=== PATIENT | male | born 1995 | race Caucasian/White ===

== ENCOUNTER 2019-09-22 22:35 | Emergency (ER) | payer MEDICAID ==
[~2019-09-22] VITALS: Ht 193 cm; Wt 112.5 kg
[2019-09-22 23:30] VITALS: BP 133/74
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
[2019-09-23] MEDS ORDERED: IBUPROFEN600 MG ORAL (00:55)
[2019-09-23] MEDS ORDERED: CYCLOBENZAPRINE10 MG ORAL (00:55)
[2019-09-23 01:00] VITALS: BP 128/76
--- NOTE | 2019-09-23 01:00 | NUR ---
ED Nurse Note: Pt cleared to be d/c per ER provider, pt discharge and aftercare instruction provided w/ prescription, pt education done via discussion and handout, pt advised to follow up with pcp or return to ed if changes in condition, pt verbalized understanding, pt accompanied by mother, left w/ all belongings, ambulatory w/ steady gait, vss, id band removed.
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
== END 2019-09-23 01:00 | disposition home or self-care (01) ==
LOC: EMR 23:08
DX: M54.2 Cervicalgia (principal); M54.6 Pain in thoracic spine; V43.52XA Car driver injured in collision with other type car in traffic accident, initial encounter; Y92.410 Unspecified street and highway as the place of occurrence of the external cause
CPT/HCPCS: 72070; 72125; Z7502; 99284